=== PATIENT | male | born 1965 | race African-American/Black ===

== ENCOUNTER 2016-07-09 02:39 | Emergency (ER) | payer MEDICAID ==
[~2016-07-09] VITALS: Ht 175.3 cm; Wt 77.0 kg
[2016-07-09 02:40] VITALS: BP 146/74
== END 2016-07-09 03:50 | disposition left against medical advice (07) ==
LOC: ER 02:39
DX: Z53.21 Procedure and treatment not carried out due to patient leaving prior to being seen by health care provider (principal)

== ENCOUNTER 2018-04-17 11:30 | Emergency (ER) | payer MEDICAID ==
[~2018-04-17] VITALS: Ht 177.8 cm; Wt 80.0 kg
[2018-04-17 11:44] VITALS: BP 147/88
== END 2018-04-17 12:32 | disposition home or self-care (01) ==
LOC: ER 11:30
DX: E11.65 Type 2 diabetes mellitus with hyperglycemia (principal); L02.416 Cutaneous abscess of left lower limb; L02.415 Cutaneous abscess of right lower limb; I10 Essential (primary) hypertension; F17.210 Nicotine dependence, cigarettes, uncomplicated; Z86.14 Personal history of Methicillin resistant Staphylococcus aureus infection; Z79.84 Long term (current) use of oral hypoglycemic drugs
CPT/HCPCS: 99283